=== PATIENT | female | born 1980 | race Caucasian/White ===

== ENCOUNTER 2024-06-22 07:37 | Outpatient (CLI) | payer OTHER, SELFPAY ==
--- NOTE | 2024-06-22 07:45 | US_ITS ---
WS: [id number] RIGHT UPPER QUADRANT ULTRASOUND HISTORY: R10.811 - Right upper quadrant abdominal tenderness COMPARISON: None available. Liver: 14.4 cm in length. Normal size liver. Slightly lobulated hepatic cyst measures 2.3 x 1.1 cm. N o bile duct dilatation. Portal Vein: Normal hepatopetal flow with monophasic waveform. Gallbladder: Normally distended gallbladder with no stones or wall thickening. CBD: 0.3 cm Pancreas: Normal size and echogenicity. Right kidney: 10.8 cm in length. Normal size kidney. Cortical cyst superior pole measures 0.9 x 0.9 x 1.0 cm. Aorta and IVC: No aneurysm. Mild atherosclerosis aorta. No ascites. US/US gall bladder [id number] IMPRESSION: 1. Normal gallbladder. 2. Minimally complex hepatic cyst. No solid mass. 3. 1.0 cm cortical cyst superior pole RIGHT kidney.
== END 2024-06-22 07:38 | disposition home or self-care (01) ==
LOC: RAD 07:38
PROVIDERS: PCP Nurse Practitioner Family; Visit Provider Nurse Practitioner Family
DX: R10.811 Right upper quadrant abdominal tenderness (principal); K76.89 Other specified diseases of liver; N28.1 Cyst of kidney, acquired
CPT/HCPCS: 76705

== ENCOUNTER 2024-07-12 07:25 | Outpatient (CLI) | payer OTHER, SELFPAY ==
--- NOTE | 2024-07-12 08:00 | NM_ITS ---
WS: [id number] NUCLEAR MEDICINE HIDA SCAN CLINICAL INFORMATION: R10.811 - Right upper quadrant abdominal tenderness TECHNIQUE: Following intravenous administration of 7.1 mCi of technetium 99m mebrofenin, images of th e abdomen were obtained over the course of 60 minutes. Next, gallbladder ejection fraction was determ ined by obtaining preprandial and one-hour postprandial images of the gallbladder following oral tania stion of Ensure. COMPARISON: Ultrasound gallbladder 06/22/2024 FINDINGS: Mild enlargement RIGHT hepatic lobe. Normal hepatic uptake at 5 minutes. Normal hepatic excretion. Ga llbladder is visualized by 15 minutes. No evidence of acute cholecystitis. Normal common bile duct an d small bowel activity. Gallbladder ejection fraction 69% within normal limits. No evidence of chronic cholecystitis. NM/NM hepatobiliary w phar* [id number] IMPRESSION: 1. No evidence of acute or chronic cholecystitis. 2. Normal gallbladder ejection fraction. 3. Mild hepatomegaly.
== END 2024-07-12 07:26 | disposition home or self-care (01) ==
PROVIDERS: PCP Nurse Practitioner Family; Visit Provider Nurse Practitioner Family
DX: R10.811 Right upper quadrant abdominal tenderness (principal); R16.0 Hepatomegaly, not elsewhere classified
CPT/HCPCS: 78227; A9537